=== PATIENT | female | born 1975 | race Two or more races ===

== ENCOUNTER 2020-07-14 15:28 | Emergency (ER) | payer OTHER ==
[~2020-07-14] VITALS: Ht 157.5 cm; Wt 77.1 kg
[~2020-07-14 15:28] MED LIST: PRENATAL VITS.; VIT. C
[2020-07-14 15:46] VITALS: BP 134/73
--- NOTE | 2020-07-14 15:56 | NUR ---
COVID SWAB DONE. SENT TO LAB.
--- NOTE | 2020-07-14 15:58 | NUR ---
BIBA FROM HOME C/O [place] X 2 WEEKS, LOSS OF SMELL/TASTE X 1 WEEK, LEFT CP X 2 DAYS, COUGH X TODAY. PT HAD LAST COVID TESTED LAST WEEK: NEGATIVE. RR 40, O2 SAT 99%, P 110 AT THIS TIME. MED HX: ASTHMA
[2020-07-14 17:20] VITALS: BP 113/67
--- NOTE | 2020-07-14 17:20 | NUR ---
Patient discharged with v/s stable. Written and verbal after care instructions given and explained. Patient alert, oriented and verbalized understanding of instructions. Ambulatory with steady gait. All questions addressed prior to discharge. ID band removed. Patient advised to follow up with PMD. Rx of TYLENOL & PROMETHAZINE given. Patient educated on indication of medication including possible reaction and side effects. Opportunity to ask questions provided and answered.
== END 2020-07-14 17:20 | disposition home or self-care (01) ==
LOC: MED 15:28
DX: R06.02 Shortness of breath (principal); Z20.828 Contact with and (suspected) exposure to other viral communicable diseases; R43.8 Other disturbances of smell and taste
CPT/HCPCS: 71045; 99284; U0003